=== PATIENT | female | born 1985 | race Hispanic/Latino ===

== ENCOUNTER 2016-06-28 10:34 | Emergency (ER) | payer SELFPAY ==
[~2016-06-28 10:34] MED LIST: Ibuprofen PO
[2016-06-28 10:39] VITALS: BP 112/75; PULSE 79; RESP 15; O2SAT 98
--- NOTE | 2016-06-28 11:31 | ED.REPORT ---
HPI-General Illness Date of Service June 28, 2016 ED Provider: Rhoda Marsh History of Present Illness: drinking too much water. drinking 2 gallons of water a day ongoing for 1 month. tried to stop, mouth gets dry. primary care is [facility]. last seen 2 weeks ago for high sugar. no return visit scheduled. no hx of dm, was not diabetic with children. full after drinking water. epigastic discomfort with stretching. Nursing Notes Stated Complaint: DRINKING LOTS OF WATER Chief Complaint: General Complaint Nursing Notes Reviewed: Yes Allergies: Coded Allergies: No Known Allergies (Unverified Allergy, Unknown, 08/06/13) Scheduled PRN ([Ibuprofen]) 800 MG TABLET 800 MG PO Q6 PRN PRN For Pain General Time Seen by MD: 11:19 Chief Complaint Other (drinking too much water) Hx Obtained From: Patient, Daughter, Other family... Sudden in Onset?: No Symptom Duration: Since onset Past Medical History Past Medical History Denies: Asthma, Diabetes mellitus, Hypertension Past Surgical History denies Smoking History Never Smoker Social History Alcohol Use: Denies alcohol use Drug Use: Denies drug use Occupation lives with 4 children, single, works in the [employer] 06/28/2016 Ambulatory Status Independent Review of Systems Full Review of Systems Constitutional: Denies: Chills Eyes: Denies: Blurred right Respiratory: Denies: Dyspnea on exertion GI: Denies: Abdominal pain Musculoskeletal: Denies: Back pain Physical Exam Vital Signs Vital Signs Date Time Temp Pulse Resp B/P Pulse Ox O2 Delivery O2 Flow Rate FiO2 06/28/16 14:32 36.9 63 16 92/57 99 Room Air 06/28/16 13:23 36.9 63 16 92/57 99 Room Air 06/28/16 10:39 36.6 79 15 112/75 98 Room Air Initial VS: Reviewed, Vital signs normal General/Constitutional: Well-developed, Well-nourished Head / Eyes: Atraumatic, Normocephalic, PERRL ENT: Mucous membranes moist, Conjunctiva normal, No scleral icterus Neck: Supple, Non-tender, Full range of motion Respiratory: Breath sounds normal, Clear to auscultation, No respiratory distress Cardiovascular: Regular rate & rhythm, Heart sounds normal, Intact distal pulses Abdomen / GI: Soft, Non-tender, No guarding, No rebound, No distention Back: No CVA tenderness Lymphatic: No lymphadenopathy Extremities: Vascular intact, Neuro intact, No swelling, No tenderness Skin: Warm, Dry, No cyanosis Neurologic: Alert, Oriented, Nonfocal Psychiatric: Mood/affect normal, Behavior normal, Normal thought content General/Constitutional: Awake, Alert, No acute distress, Well appearing, Well developed, Well hydrated Head / Eyes: Atraumatic, Normocephalic, PERRL, EOMI Neck: Atraumatic, Supple, No meningismus, No adenopathy Respiratory / Chest: Atraumatic, Breath sounds NL, Breath sounds = bilat, No respiratory distress Cardiovascular: Heart rate NL, Regular rhythm, Heart sounds NL, No gallop Abdomen: Atraumatic, Soft, Non-tender, McBurney's non-tender mild epigastric discomfort Interpretation & Diagnostics Lab Results Interpretation Result Diagram: 06/28/16 1200 06/28/16 1200 Test 06/28/16 11:40 06/28/16 12:00 Urine Color Straw (YELLOW) Urine Appearance Clear (CLEAR,HAZY) Urine pH 6.5 (5.0-8.0) Urine Specific [place] 1.005 (1.003-1.035) Urine Protein Negativemg/dL (NEG,TRACE) Urine Glucose (UA) Negativemg/dL (NEGATIVE) Urine Ketones Negativemg/dL (NEGATIVE) Urine Occult Blood Negative (NEGATIVE) Urine Nitrite Negative (NEGATIVE) Urine Bilirubin Negative (NEGATIVE) Urine Urobilinogen Normalmg/dL (NORMAL) Urine Leukocyte Esterase Negative (NEGATIVE) Urine RBC 0-2/hpf (0-2) Urine WBC 0-5/hpf (0-5) Urine Epithelial Cells Occasional/hpf (NONE-MOD) Urine Crystals None seen (NONE SEEN) Urine Bacteria None/hpf (NONE-FEW) Urine Hyaline Casts None/lpf (NONE) Urine Granular Casts None seen (NONE SEEN) Urine Waxy Casts None seen (NONE SEEN) Urine Red Blood Cell Casts None seen (NONE SEEN) Urine White Blood Cell Casts None seen (NONE SEEN) Urine Mucus None seen (None Seen) Urine Trichomonas None seen (NONE SEEN) Urine Yeast None (NONE SEEN) Urinalysis Comment None Urine Culture Reflexed Not indicated Hold Urine Received (Received) White Blood Count 8.8th/mm3 (3.8-10.1) Red Blood Count 4.79mil/mm3 (3.90-5.20) Hemoglobin 14.4g/dL (12.0-15.6) Hematocrit 42.2% (35.0-46.0) Mean Corpuscular Volume 88.1fL (81-100) Mean Corpuscular Hemoglobin 30.1pg (27.0-35.0) Mean Corpuscular Hemoglobin Concent 34.1% (32.0-37.0) Red Cell Distribution Width 14.0% (12.3-15.4) Platelet Count 212bil/L (150-400) Neutrophils (%) (Auto) 50.4% (40-74) Lymphocytes (%) (Auto) 33.9% (14-46) Monocytes (%) (Auto) 7.8% (4-12) Eosinophils (%) (Auto) 6.8% (0-5) Basophils (%) (Auto) 1.0% (0-3) Sodium Level 143mEq/L (134-144) Potassium Level 3.2mEq/L (3.5-5.2) Chloride Level 105mEq/L (97-108) Carbon Dioxide Level 25mmol/L (18-29) Blood Urea Nitrogen 6mg/dL (6-20) Creatinine 0.40mg/dL (0.57-1.00) Estimat Glomerular Filtration Rate 268mL/min (>59) Glucose Level 94mg/dL (60-99) Calcium Level 9.5mg/dL (8.5-10.1) Total Bilirubin 0.3mg/dL (0.0-1.2) Aspartate Amino Transf (AST/SGOT) 24U/L (0-50) Alanine Aminotransferase (ALT/SGPT) 29U/L (0-32) Alkaline Phosphatase 71U/L (25-150) Total Protein 7.4g/dL (6.4-8.4) Albumin 4.1g/dL (3.4-5.0) Thyroid Stimulating Hormone (TSH) 1.150uIU/mL (0.450-4.500) Hold Walls Top Tube Received (Received) Re-Eval/Medical Decision Med Decision/Clinical Course 31 year old female opresents for drinking too much water. feels her mouth is dry. Labs are unrmarkable. A1c is pending. Us is unremarkable. Patient to follow with theodore for a1c results Discharge & Departure Primary Impression: Epigastric pain Additional Impression: Concern about diabetes mellitus without diagnosis Disposition: Home Patient Instructions: Type 2 Diabetes in Adults (ED) Additional Instructions: Your labs are normal. I have added a test for diabetes. The results should be back on Thursday or Thursday. The Ultrasound did not show the gall bladder well. You had just eaten. To try to help, I will start you on metformin 500 mg in the am and pm for 14 days. This will decrease your blood sugar. Hopefully, the dryness in your mouth will decrease. Also omeprazole 20 mg daily will be helpful. Please follow with Theodore later this week to get the results of your A1c. The metformin may be stopped if the test is normal. Referrals: [facility] (PCP) EDSupervising Provider for APC: Migue Crane MD copies to: [facility] Rhoda Marsh June 28, 2016 11:31
[2016-06-28 12:17] LABS: EOSINOPHILS % (AUTO) 6.8 % (0-5); MONOCYTES % (AUTO) 7.8 % (4-12); Mean Corpuscular Hemoglobin 30.1 pg (27.0-35.0); Mean Corpuscular Volume 88.1 fL (81-100); NEUTROPHILS % (AUTO) 50.4 % (40-74); Platelet Count 212 bil/L (150-400)
[2016-06-28 12:37] LABS: APPEARANCE,URINE CLEAR (CLEAR,HAZY); COLOR,URINE STRAW (YELLOW); OCCULT BLOOD,URINE NEGATIVE (NEGATIVE); PH,URINE 6.5 (5.0-8.0); UROBILINOGEN,URINE NORMAL (NORMAL)
--- NOTE | 2016-06-28 13:02 | DRSVH ---
PROCEDURE: US ABDOMEN ([id number]) INDICATIONS: epigastric pain TECHNIQUE: Real-time scanning was performed of the abdominal and retroperitoneal organs, with image documentatio n. COMPARISON: None. FINDINGS: Liver: The liver is mildly enlarged with steatosis. Gallbladder: Gallbladder is contracted without gross wall thickening or visualized stone. Biliary ducts: Intrahepatic bile ducts are non-dilated. Extrahepatic bile duct caliber measures 5.8 mm. Normal is 6-7 mm or less in diameter, or 10 mm or less post-cholecystectomy. Pancreas: Visualized portions of the pancreas are sonographically normal. Spleen: Spleen is normal in size and homogeneous in echotexture. Kidneys: Kidneys are normal in size and echotexture. Right kidney measures 10.4 cm long; left kidne y measures 10.4 cm long. No hydronephrosis or nephrolithiasis. No solid masses. Aorta: Visualized aorta is normal in caliber at less than 3 cm. Iliacs: Proximal common iliac arteries are normal in caliber at less than 2.5 cm. IVC: Intrahepatic inferior vena cava is patent. Miscellaneous: No free abdominal fluid. IMPRESSION: 1. Mild hepatomegaly with steatosis. Otherwise, unremarkable exam. Dictated by: Annabella Carlson M.D. on 06/28/2016 at 12:59 Approved by: Annabella Carlson M.D. on 06/28/2016 at 13:00
[2016-06-28 13:23] VITALS: BP 92/57; PULSE 63; RESP 16; O2SAT 99
[2016-06-28 14:32] VITALS: BP 92/57; PULSE 63; RESP 16; O2SAT 99
== END 2016-06-28 14:34 | disposition home or self-care (01) ==
LOC: SED 10:34
DX: R10.13 Epigastric pain (principal)